=== PATIENT | female | born 1980 | race Two or more races ===

== ENCOUNTER 2017-03-17 11:44 | Emergency (ER) | payer OTHER, MEDICAID ==
[2017-03-17 11:52] VITALS: BP 103/67; PULSE 120; RESP 16; TEMP 98.4; O2SAT 98
--- NOTE | 2017-03-17 12:18 | EDPHY ---
H & P Stated Complaint: Opiate withdrawl morphine, Oxycodone-Sushila melformation. Time Seen by Provider: 03/17/17 12:16 HPI/ROS: HPI: This is a 36-year-old female who presents with Chief Complaint: Opiate withdrawal morphine, Oxycodone-Sushila malformation. ief Complaint: Opiate withdrawal- 12 hours ago. Location:body Quality:opiate withdrawal Duration: 12 hr Signs and Symptoms: No fever, no chills, no agitation, no muscle aches, no insomnia, + skin crawling, no abdominal cramping, no diarrhea, no neck stiffness , no headache Timing: Acute on chronic Severity: Moderate Context: Patient is here with her long-time partner as well as family member who presents with request for treatment of symptoms of opiate withdrawal and recommendations for outpatient treatment for chronic opiate abuse. She has been to rehab 2 times in the past. Reports his last use of heroin was approximately midnight via intravenously. She denies chest pain/shortness of breath/abdominal pain/headache. She does report some mild nausea. Patient keeps falling asleep during interview. Patient reports that she has been taking opiate medications for more than 7 years. She admits only using recently opiate medications consisting of pill form and IV heroin. In the past she has methamphetamine be but no longer does. Denies suicidal ideation, homicidal ideation, hallucinations. Modifying Factors: None ROS: see HPI Constitutional: No fever, no chills, no weight loss Eyes: No blurred vision Respiratory: No shortness of breath, no cough Cardiovascular: No chest pain Gastrointestinal: No nausea, no vomiting, no diarrhea Genitourinary: No dysuria Extremities: No myalgias Neurologic: No weakness, no numbness Skin: No rashes Hematologic: No bruising, no bleeding MEDICAL/SURGICAL/SOCIAL HISTORY: Medical history: Sushila malformation, TNJ, Herniated discs-C4-C6, tubal ligation , narcotic addiction, ? schizophrenia. Surgical history: Denies Social history: CONSTITUTIONAL: Untidy, then, adult female, awake and alert, no obvious distress HEENT: Atraumatic and normocephalic, PERRL, EOMI. Tympanic membranes clear. Oropharynx clear, no exudate and moist pink mucosa. Airway patent. No lymphadenopathy. No meningismus. Cardiovascular: Normal S1/S2, mild tachycardia, regular rhythm, without murmur rub or gallop. PULMONARY/CHEST: Symmetrical and nontender. Clear to auscultation bilaterally. Good air movement. No accessory muscle usage. ABDOMEN: Soft, nondistended, nontender, no rebound, no guarding, no peritoneal signs, no masses or organomegaly. No CVAT. EXTREMITIES: 2/2 pulses, strength 5/5, no deformities, no clubbing, no cyanosis or edema. NEUROLOGICAL: no focal neuro deficits. GCS 15. SKIN: Warm and dry, no erythema. no rash. Good capillary refill. Source: Patient, Family Exam Limitations: Intoxication - Personal History Current Tetanus/Diphtheria Vaccine: Yes Current Tetanus Diphtheria and Acellular Pertussis (TDAP): Yes Tetanus Vaccine Date: 2017 - Medical/Surgical History Hx Asthma: No Hx Chronic Respiratory Disease: No Hx Diabetes: No Hx Cardiac Disease: No Hx Renal Disease: No Hx Cirrhosis: No Hx Alcoholism: No Hx HIV/AIDS: No Hx Splenectomy or Spleen Trauma: No Other PMH: Sushila malformation, TNJ, Herniated discs-C4-C6, tubal ligation, narcotic addiction, ? schizophrenia. - Social History Smoking Status: Heavy smoker Constitutional: Initial Vital Signs Temperature (C) 36.9 C 03/17/17 11:45 Heart Rate 120 H 03/17/17 11:45 Respiratory Rate 16 03/17/17 11:45 Blood Pressure 103/67 03/17/17 11:45 O2 Sat (%) 98 03/17/17 11:45 O2 Delivery Mode Room Air Allergies/Adverse Reactions: erythromycin base [Erythromycin Base] Allergy (Severe, Verified 03/17/17 11:52) Dyspnea Penicillins Allergy (Severe, Verified 03/17/17 11:52) Dyspnea tetracycline [Tetracycline] Allergy (Severe, Verified 03/17/17 11:52) Dyspnea meperidine HCl [From Demerol] Adverse Reaction (Mild, Verified 03/17/17 11:52) Itching Home Medications: Medication Instructions Recorded NK [No Known Home Meds] 03/17/17 Medical Decision Making ED Course/Re-evaluation: Patient was given p.o. Pepcid and p.o. Zofran. Mild tachycardia noted upon arrival. No SI/HI. Does not meet detainer or M1 hold criteria. case resource manager consult. After patient was in the emergency room for over an hour; her significant other and her left the emergency room prior to case management consult, plan of care, disposition. Nurse returned to the room to find it to be empty. This patient was seen under the supervision of my secondary supervising physician. I evaluated care for this patient independently. Differential Diagnosis: Differential diagnosis includes but is not limited to - Data Points Medications Given: Discontinued Medications Famotidine (Pepcid) 20 mg PO EDNOW ONE Stop: 03/17/17 12:32 Last Admin: 03/17/17 12:39 Dose: 20 mg Ondansetron HCl (Zofran Odt) 4 mg PO EDNOW ONE Stop: 03/17/17 12:32 Last Admin: 03/17/17 12:39 Dose: 4 mg Departure - Departure Disposition: Against Medical Advice Clinical Impression: Opiate abuse, continuous, Opiate withdrawal Condition: Fair Referrals: [facility] Hours [Outside] - As per Instructions
[2017-03-17] MEDS ORDERED: ONDANSETRON DISINTEGRATING 4 MG TAB PO ONE (12:31)
[2017-03-17] MEDS ORDERED: FAMOTIDINE 20 MG TAB PO ONE (12:31)
[2017-03-17] MEDS ORDERED: ONDANSETRON DISINTEGRATING 4 MG TAB ONE (12:31)
== END 2017-03-17 13:05 | disposition left against medical advice (07) ==
DX: F11.23 Opioid dependence with withdrawal (principal); F17.200 Nicotine dependence, unspecified, uncomplicated